=== PATIENT | female | born 1990 | race Caucasian/White ===

== ENCOUNTER 2016-08-16 13:34 | Emergency (ER) | payer OTHER ==
[~2016-08-16] VITALS: Ht 172.7 cm; Wt 60.0 kg
[2016-08-16 13:49] VITALS: BP 121/82; PULSE 140; RESP 22; O2SAT 100
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
[2016-08-16] MEDS ORDERED: IBUP800T28 PO (15:22)
--- NOTE | 2016-08-16 15:30 | DRSVH ---
PROCEDURE: US APPENDIX INDICATIONS: RLQ pain TECHNIQUE: Real-time focused scanning was performed of the abdomen with attention to the appendix, with image do cumentation. COMPARISON: None. FINDINGS: Appendix is not visualized. Multiple compressible fluid-filled loops are seen within the right lower quadrant. IMPRESSION: Appendix not seen. No evidence of appendicitis. Dictated by: Jun Walter M.D. on 08/16/2016 at 15:21 Approved by: Jun Walter M.D. on 08/16/2016 at 15:22
[2016-08-16 15:58] VITALS: BP 105/74; PULSE 120; O2SAT 98
== END 2016-08-16 15:57 | disposition home or self-care (01) ==
LOC: SED 13:34
DX: R10.31 Right lower quadrant pain (principal); W50.1XXA Accidental kick by another person, initial encounter; Y93.9 Activity, unspecified; Y92.009 Unspecified place in unspecified non-institutional (private) residence as the place of occurrence of the external cause; Y99.9 Unspecified external cause status